=== PATIENT | male | born 1945 | race Caucasian/White ===

== ENCOUNTER 2017-06-12 14:20 | Emergency (ER) | payer MEDICARE, MEDICAID ==
[~2017-06-12] VITALS: Ht 175.3 cm; Wt 81.8 kg
[2017-06-12] MEDS ORDERED: SULFAMETHOX/TRIMETH DS 800-160 MG/TABLET PO ONE (15:30)
[2017-06-12] MEDS ORDERED: CEPHALEXIN MONOHYDRATE 500 MG CAPSULE PO ONE (15:30)
[2017-06-12] MEDS ORDERED: POVIDONE-IODINE 10% 15 ML SOLUTION UD TP ONE (15:30)
[2017-06-12] MEDS ORDERED: HYDROCODONE/ACETAMINOPHEN 5-325 MG TABLET PO ONE (15:30)
[2017-06-12] MEDS ORDERED: LIDOCAINE HCL 1% 10 ML VIAL INJ ONE (15:30)
[2017-06-12 16:09] VITALS: BP 139/78
== END 2017-06-12 16:32 | disposition home or self-care (01) ==
LOC: EMS 14:23
DX: L02.31 Cutaneous abscess of buttock (principal); L03.317 Cellulitis of buttock
CPT/HCPCS: 10060; 99284; J3490

== ENCOUNTER 2017-06-15 11:07 | Emergency (ER) | payer MEDICARE, MEDICAID ==
[~2017-06-15] VITALS: Ht 175.3 cm; Wt 63.6 kg
[2017-06-15 11:16] VITALS: BP 130/72
== END 2017-06-15 13:03 | disposition home or self-care (01) ==
LOC: EMS 11:10
DX: Z48.00 Encounter for change or removal of nonsurgical wound dressing (principal); L02.31 Cutaneous abscess of buttock; F17.210 Nicotine dependence, cigarettes, uncomplicated
CPT/HCPCS: 99282